=== PATIENT | female | born 1970 | race Caucasian/White ===

== ENCOUNTER 2018-07-29 02:14 | Emergency (ER) | payer SELFPAY ==
[~2018-07-29] VITALS: Ht 170.2 cm; Wt 79.4 kg
[~2018-07-29 02:14] MED LIST: CAMPRAL333 MG PO; PRISTIQ ER100 MG PO; ZOLOFT50 MG PO
== END 2018-07-29 02:32 | disposition left against medical advice (07) ==
LOC: ER 02:14
DX: H92.01 Otalgia, right ear (principal)